=== PATIENT | female | born 1925 | race African-American/Black ===

== ENCOUNTER 2016-10-04 03:32 | Inpatient (IN) | payer MEDICARE, BC ==
[2016-10-04] VITALS (7 sets, daily range): BP systolic 150–191; BP diastolic 65–74
[~2016-10-04] VITALS: Ht 165.1 cm; Wt 65.8 kg
[2016-10-04] MEDS ORDERED: UNOBMED (03:35)
--- NOTE | 2016-10-04 04:07 | Emergency Room Report ---
History of Present Illness General Chief Complaint: Hypertension Source: Patient, EMS Present Illness HPI Is an 89-year-old female with no medical problem. She lives by herself. She does not know why she is here. EMS was called to her place. They were let in by her neighbor. They found her in the bathroom. She said she did not fall. She did not know why 911 was called. Her blood pressure was very high so they brought her here. Patient denies any symptom. She denied any trauma. Denies any focal deficit. Allergies: Coded Allergies: No Known Allergies (Unverified , 10/04/16) Patient History Past Medical History: none Past Surgical History: none Pertinent Family History: none Social History: Denies: smoking Now: No Immunizations: other Reviewed Nursing Documentation: PMH: Agreed, PSxH: Agreed Nursing Documentation-PMH Hx Hypertension: Yes History Of Psychiatric Problem: Yes - DEMENTIA Review of Systems Eye: Denies: blurred vision, eye pain ENT: Denies: ear pain, nose congestion, throat swelling Respiratory: Denies: cough, shortness of breath Cardiovascular: Denies: chest pain, palpitations Gastrointestinal: Denies: abdominal pain, diarrhea, nausea, vomiting Musculoskeletal: Denies: back pain, joint pain Skin: Denies: rash Neurological: Denies: headache, numbness Endocrine: Denies: increased thirst, increased urine Hematologic/Lymphatic: Denies: easy bruising All Other Systems: negative except mentioned in HPI Physical Exam Vital Signs Date Time Temp Pulse Resp B/P Pulse Ox O2 Delivery O2 Flow Rate FiO2 10/04/16 03:35 98.1 83 16 216/85 96 Room Air vitals with hypertension Sp02 EP Interpretation: reviewed, normal General Appearance: well appearing, no apparent distress, alert Head: normocephalic, atraumatic Eyes: bilateral eye EOMI, bilateral eye PERRL ENT: hearing grossly normal, normal pharynx, other - Patient has gauze stuffed up both nostrils.She did this because her nose was running. Neck: full range of motion, supple, no meningismus Respiratory: chest non-tender, lungs clear, normal breath sounds Cardiovascular #1: regular rate, rhythm, no murmur Gastrointestinal: normal bowel sounds, non tender, no mass, no organomegaly, no bruit, non-distended Musculoskeletal: back normal, gait/station normal, normal range of motion Psychiatric: mood/affect normal Skin: warm/dry Medical Decision Making Diagnostic Impression: Primary Impression: Hypertension Qualified Codes: I10 - Essential (primary) hypertension Additional Impressions: UTI (urinary tract infection) Qualified Codes: N30.00 - Acute cystitis without hematuria Dementia Qualified Codes: F03.90 - Unspecified dementia without behavioral disturbance ER Course Patient presents with altered mental status. I suspect that she has worsening dementia secondary to urine tract infection. Initially she is alert oriented x3 but now she doesn't remember brought her here. Did not know that EMS was called. I feel that she is a danger to herself because of her worsening dementia. We'll admit her for further workup. Per EMS, her house is very messy and unkempt. Laboratory Tests Test 10/04/16 03:55 10/04/16 04:12 White Blood Count 5.7 K/UL (4.8-10.8) Red Blood Count 4.38 M/UL (4.20-5.40) Hemoglobin 12.8 G/DL (12.0-16.0) Hematocrit 39.0 % (37.0-47.0) Mean Corpuscular Volume 89 FL (80-99) Mean Corpuscular Hemoglobin 29.3 PG (27.0-31.0) Mean Corpuscular Hemoglobin Concent 32.9 G/DL (32.0-36.0) Red Cell Distribution Width 13.1 % (11.6-14.8) Platelet Count 198 K/UL (150-450) Mean Platelet Volume 8.1 FL (6.5-10.1) Neutrophils (%) (Auto) 55.0 % (45.0-75.0) Lymphocytes (%) (Auto) 33.1 % (20.0-45.0) Monocytes (%) (Auto) 9.2 % (1.0-10.0) Eosinophils (%) (Auto) 1.8 % (0.0-3.0) Basophils (%) (Auto) 1.0 % (0.0-2.0) Sodium Level 141 mEQ/L (135-145) Potassium Level 3.6 mEQ/L (3.4-4.9) Chloride Level 99 mEQ/L (98-107) Carbon Dioxide Level 27 mEQ/L (20-30) Anion Gap 15 (5-15) Blood Urea Nitrogen 18 mg/dL (7-23) Creatinine 1.0 mg/dL (0.5-0.9) H Estimat Glomerular Filtration Rate mL/min (>60) Glucose Level 114 mg/dL (74-106) H Calcium Level 9.4 mg/dL (8.6-10.2) Total Bilirubin 0.3 mg/dL (0.0-1.2) Aspartate Amino Transf (AST/SGOT) 23 U/L (5-40) Alanine Aminotransferase (ALT/SGPT) 18 U/L (3-33) Alkaline Phosphatase 149 U/L (35-104) H Total Protein 7.2 g/dL (6.6-8.7) Albumin 4.1 g/dL (3.5-5.2) Globulin 3.1 g/dL Albumin/Globulin Ratio 1.3 (1.0-2.7) Urine Color Pale yellow Urine Appearance Slightly cloudy Urine pH 7 (4.5-8.0) Urine Specific [place] 1.010 (1.005-1.035) Urine Protein 1+ (NEGATIVE) H Urine Glucose (UA) Negative (NEGATIVE) Urine Ketones Negative (NEGATIVE) Urine Occult Blood 1+ (NEGATIVE) H Urine Nitrite Negative (NEGATIVE) Urine Bilirubin Negative (NEGATIVE) Urine Urobilinogen Normal MG/DL (0.0-1.0) Urine Leukocyte Esterase 3+ (NEGATIVE) H Urine RBC 2-4 /HPF (0 - 2) H Urine WBC 20-30 /HPF (0 - 2) H Urine Squamous Epithelial Cells Few /LPF (NONE/OCC) Urine Bacteria Few /HPF (NONE) Lab Results Impression labs unremarkable EKG Diagnostic Results Rate: normal Rhythm: NSR ST Segments: no acute changes Rhythm Strip Diag. Results EP Interpretation: yes Rate: 75 Rhythm: NSR, no PVC's, no ectopy CT/MRI/US Diagnostic Results CT/MRI/US Diagnostic Results : Imaging Test Ordered: CT head Impression negative per radiologist Last Vital Signs Date Time Temp Pulse Resp B/P Pulse Ox O2 Delivery O2 Flow Rate FiO2 10/04/16 03:46 83 16 Room Air 10/04/16 03:35 98.1 216/85 96 Status: improved Disposition: ADMITTED INPATIENT Condition: Serious FLIP HOUSTON M.D. Oct 04, 2016 04:07
[2016-10-04 04:15] LABS: EOSINOPHILS % (AUTO) 1.8 % (0.0-3.0); LYMPHOCYTES % (AUTO) 33.1 % (20.0-45.0); MEAN CORPUSCULAR HEMOGLOBIN 29.3 PG (27.0-31.0); MEAN CORPUSCULAR HGB CONC 32.9 G/DL (32.0-36.0); MEAN CORPUSCULAR VOLUME 89 FL (80-99); MEAN PLATELET VOLUME 8.1 FL (6.5-10.1); MONOCYTES % (AUTO) 9.2 % (1.0-10.0); PLATELET COUNT 198 K/UL (150-450); RED BLOOD COUNT 4.38 M/UL (4.20-5.40); RED CELL DISTRIBUTION WIDTH 13.1 % (11.6-14.8); WHITE BLOOD COUNT 5.7 K/UL (4.8-10.8)
[2016-10-04 04:28] LABS: KETONES,URINE NEGATIVE (NEGATIVE); LEUKOCYTE ESTERASE ,URINE 3+ (NEGATIVE); NITRITE,URINE NEGATIVE (NEGATIVE); PH,URINE 7 (4.5-8.0); PROTEIN,URINE 1+ (NEGATIVE); UROBILINOGEN,URINE NORMAL MG/DL (0.0-1.0)
[2016-10-04 04:29] LABS: ALANINE AMINOTRANSFERASE 18 U/L (3-33); ALBUMIN/GLOBULIN RATIO 1.3 (1.0-2.7); ANION GAP 15 (5-15); ASPARTATE AMINO TRANSFERASE 23 U/L (5-40); CALCIUM 9.4 mg/dL (8.6-10.2); CARBON DIOXIDE 27 mEQ/L (20-30); CHLORIDE 99 mEQ/L (98-107); HEMOLYSIS 0; POTASSIUM 3.6 mEQ/L (3.4-4.9); SODIUM 141 mEQ/L (135-145); TOTAL PROTEIN 7.2 g/dL (6.6-8.7)
[2016-10-04 04:32] LABS: APPEARANCE,URINE SLIGHTLY CLOUDY
[2016-10-04 04:41] LABS: BACTERIA,URINE FEW /HPF; SQUAMOUS EPITHELIAL CELL,UR FEW /LPF (NONE/OCC); WBC,URINE 20-30 /HPF (0 - 2)
[2016-10-04] MEDS ORDERED: cefTRIAXone 1 GM in NS 55 ML IVPB ONE (05:15)
[2016-10-04] MEDS ORDERED: Milk of Magnesia 30ml Ud ORAL PRN (08:00)
--- NOTE | 2016-10-04 09:28 | Diagnostic Imaging Report ---
Indication: Altered mental status Technique: Continuous helical CT scanning of the head was performed utilizing automated exposure control without intravenous contrast material. Axial and coronal reconstructions were obtained. Comparison: None CT dose: Total DLP 1291 mGycm; CTDI vol 70.4 mGy Findings: There is no acute intracranial hemorrhage, mass effect or cortical edema. The ventricles, cisterns and sulci are prominent consistent with atrophy. Periventricular and subcortical hypoattenuation are seen, a nonspecific finding. 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 The posterior fossa and fourth ventricle are unremarkable. Sellar and suprasellar regions are grossly unremarkable. There is a small retention cyst or polyp of the right maxillary sinus. No focal lesions of the bony calvarium or soft tissues of the scalp are seen. Impression: No evidence of acute intracranial hemorrhage, mass effect or cortical edema. MRI may be obtained for more sensitive evaluation as clinically indicated. Atrophy and prominent nonspecific periventricular and subcortical hypoattenuation suggestive of chronic ischemic microvascular changes. Tiny hypodensity of the right basal ganglia probably an old infarct. The CT scanner at [facility] [place] is accredited by the [employer] and the scans are performed using protocols designed to limit radiation exposure to as low as reasonably achievable to attain images of sufficient resolution adequate for diagnostic evaluation.
--- NOTE | 2016-10-04 11:11 | History & Physical ---
History and Physical History & Physicial HP dictated # [id number] DAVID LIU Oct 04, 2016 11:11
[2016-10-04] MEDS ORDERED: PPD Tuberculin Skin Test 5TU IDERMAL ONE (14:00)
--- NOTE | 2016-10-04 18:38 | History and Physical Report ---
DATE OF ADMISSION: 10/04/2016 CHIEF COMPLAINT: The patient was found to be confused at her residence and had a high blood pressure. HISTORY OF PRESENT ILLNESS: This is an 89-year-old female, who apparently lives alone. The patient was brought in by paramedics. Apparently a neighbor called because the neighbors felt that the patient could not take care of herself. When the paramedics entered the house, she was in the bathroom and she said that she did not fall. The patient was brought into the emergency room and was admitted for UTI and also elevated blood pressure. Initial blood pressure was in the 200 range systolic. The patient is completely confused. She knows her name and she knows the year. She does not know the month. Also she thinks that she is in a race track. She does not know that she is in the hospital. When asked why she came here, she said that she wanted to meet some friends here. PAST MEDICAL HISTORY: The patient does have a history of hypertension, otherwise, we cannot get much history from her. Also it looks like she has also previous history of dementia. SOCIAL HISTORY: Again the patient has no history of smoking or alcohol abuse. She lives alone. ALLERGIES: No known drug allergies. REVIEW OF SYSTEMS: Noncontributory. PHYSICAL EXAMINATION: GENERAL: This is an elderly female, in no acute distress. VITAL SIGNS: Blood pressure 160/74, pulse 86, temperature 98.1, and respiratory rate is 18. HEENT: [place] conjunctivae. Anicteric sclerae. NECK: Supple. LUNGS: Clear to auscultation. HEART: S1 and S2 without murmurs or rubs. ABDOMEN: Soft and nontender. EXTREMITIES: No cyanosis or edema. LABORATORY FINDINGS: The chemistry panel showed serum sodium 141, potassium 3.6, chloride 99, CO2 of 27, BUN is 18, creatinine 1, and blood sugar is 114. AST 23 and ALT 18. CBC shows WBC of 5.7, hematocrit is 39.4, hemoglobin is 12.8, and platelets 198,000. ASSESSMENT: This is an 89-year-old female, who was admitted with urinary tract infection, uncontrolled hypertension, and failure to thrive. She is not able to take care of herself because of her dementia, likely Alzheimer type. PLAN: The patient was started on IV antibiotics. She will be on blood pressure medication, and those medications will be adjusted gradually. [facility] to [facility] the patient in a [facility] facility for the time being and also psychiatry evaluation will be done to see how much capacity the patient has. At this point, she looks like she cannot make any decisions for herself. Deejay Kearney M.D. DR: ORA JOB#: [id number] CC:
[2016-10-05] VITALS: BP 148/67
[2016-10-05 04:00] VITALS: BP 152/65
[2016-10-05] MEDS: cefTRIAXone 1 GM in NS 55 ML IVPB SCH (05:05)
[2016-10-05 07:51] VITALS: BP 135/69
--- NOTE | 2016-10-05 10:41 | Diagnostic Imaging Report ---
Indications: COUGH Technique: Portable AP chest Findings: Comparison: None Inspiratory effort is suboptimal. Linear densities in both lung bases. Visualized portions of lungs and pleura are otherwise clear. Cardiac silhouette partially obscured. Pulmonary vasculature within normal limits. Thoracic aorta mildly calcified and elongated. Bridging osteophytes throughout thoracic spine. IMPRESSION: Pulmonary bibasal subsegmental atelectasis versus scarring Otherwise no evidence of acute cardiopulmonary disease, limited as described Aortosclerosis and probable chronic hypertensive change Degenerative spondylosis
[2016-10-05 11:54] VITALS: BP 154/92
--- NOTE | 2016-10-05 12:40 | General Progress Note ---
Assessment/Plan Problem List: (1) UTI (urinary tract infection) ICD Codes: N39.0 - Urinary tract infection, site not specified SNOMED: 28001219 Qualifiers: Qualified Codes: N30.00 - Acute cystitis without hematuria (2) Hypertension ICD Codes: I10 - Essential (primary) hypertension SNOMED: 23431122 Qualifiers: Qualified Codes: I10 - Essential (primary) hypertension (3) Dementia ICD Codes: F03.90 - Unspecified dementia without behavioral disturbance SNOMED: 63661462 Qualifiers: Qualified Codes: F03.90 - Unspecified dementia without behavioral disturbance Assessment/Plan Abxs watch BP Discussed with nephcindi Mcclelland at length Subjective Allergies: Coded Allergies: No Known Allergies (Unverified , 10/04/16) Subjective feels ok Objective Last 24 Hour Vital Signs Date Time Temp Pulse Resp B/P Pulse Ox O2 Delivery O2 Flow Rate FiO2 10/05/16 11:54 97.7 77 18 154/92 98 Room Air 10/05/16 08:21 77 135/69 10/05/16 07:51 97.5 77 18 135/69 97 Room Air 10/05/16 04:00 97.6 73 19 152/65 99 Room Air 10/05/16 00:00 98.0 75 19 148/67 98 10/04/16 20:00 98.6 83 20 150/71 98 Room Air 10/04/16 16:00 98.6 85 21 152/74 97 Room Air Intake and Output 10/04/16 10/05/16 19:00 07:00 Intake Total 480 ml 315 ml Balance 480 ml 315 ml Intake Oral 480 ml 260 ml IV Total 55 ml Laboratory Tests 10/05/16 07:00: Thyroid Stimulating Hormone (TSH) 2.860 Height (Feet): 5 Height (Inches): 5.00 Weight (Pounds): 145 Cardiovascular: normal rate Respiratory/Chest: lungs clear Edema: no edema noted DAVID Gaytan Oct 05, 2016 12:40
[2016-10-05 16:00] VITALS: BP 174/76
[2016-10-05 20:00] VITALS: BP 146/84
--- NOTE | 2016-10-06 01:38 | Consultation ---
DATE OF CONSULTATION: HISTORY OF PRESENT ILLNESS: The patient is an 89-year-old female with a history of hypertension. The patient has been admitted to the hospital brought in by paramedics, neighbor called as the patient was unable to care for herself. During the evaluation, the patient is presenting with impairment of concentration, memory, and attention. She appears to be confused. She was asking home and was pointing out to the nursing station. During the evaluation, she was unable to provide much history as she was confused and was unable to be engaged. She was anxious and irritable. PAST PSYCHIATRIC HISTORY: None known. PAST MEDICAL HISTORY: Significant for urinary tract infection, hypertension, and dementia with behavioral issues. ALLERGIES: There is no known drug allergies. SUBSTANCE ABUSE HISTORY: No history of illicit drug use or alcohol. Nonsmoker. MENTAL STATUS EXAMINATION: The patient is alert, oriented times self and place. She was uncooperative with the examination. She was unable to provide any history. Her mood is irritable. Affect is congruent with mood. Thought process was concrete. Thought content, there is no suicidal or homicidal ideation. However, she was delusional. Cognition was impaired. Insight and judgment is impaired. ASSESSMENT: [place] I: Dementia with behavioral disturbance. AXIS II: Deferred. AXIS III: As above. AXIS IV: Mild. AXIS V: 20. PLAN: The patient lacks capacity to leave against medical advice. She also lacks capacity to make decisions in regards to living on her own. The patient is unable to care for self and she needs to be discharged to a long-term. The patient was unable to understand, process, communicate, nor appreciate the information was given to her in regards to her mental condition. Therefore, she lacks capacity to make decisions about her disposition. Arley Fuchs M.D. DR: Shayan JOB#: [id number] CC:
[2016-10-06 04:00] VITALS: BP 130/74
[2016-10-06] MEDS: cefTRIAXone 1 GM in NS 55 ML IVPB SCH (04:25)
[2016-10-06 08:00] VITALS: BP 123/69
[2016-10-06 12:00] VITALS: BP 127/61
[2016-10-06] MEDS ORDERED: LORazepam 1mg tab ORAL PRN (12:45)
[2016-10-06 16:00] VITALS: BP 147/70
--- NOTE | 2016-10-06 16:09 | General Progress Note ---
Assessment/Plan Problem List: (1) UTI (urinary tract infection) ICD Codes: N39.0 - Urinary tract infection, site not specified SNOMED: 89483725 Qualifiers: Qualified Codes: N30.00 - Acute cystitis without hematuria (2) Hypertension ICD Codes: I10 - Essential (primary) hypertension SNOMED: 83086998 Qualifiers: Qualified Codes: I10 - Essential (primary) hypertension (3) Dementia ICD Codes: F03.90 - Unspecified dementia without behavioral disturbance SNOMED: 73196075 Qualifiers: Qualified Codes: F03.90 - Unspecified dementia without behavioral disturbance Assessment/Plan Abxs watch BP Discussed with RN Subjective Allergies: Coded Allergies: No Known Allergies (Unverified , 10/04/16) Subjective was wandering around today Objective Last 24 Hour Vital Signs Date Time Temp Pulse Resp B/P Pulse Ox O2 Delivery O2 Flow Rate FiO2 10/06/16 16:00 97.6 82 20 147/70 92 Room Air 10/06/16 12:00 96.9 83 19 127/61 97 Room Air 10/06/16 08:44 82 130/74 10/06/16 08:00 97.6 79 18 123/69 Room Air 10/06/16 04:00 97.8 82 18 130/74 97 Room Air 10/05/16 20:00 98.2 86 18 146/84 97 Room Air 10/05/16 17:07 174/76 Intake and Output 10/05/16 10/06/16 19:00 07:00 Intake Total 600 ml 55 ml Balance 600 ml 55 ml Intake Oral 600 ml IV Total 55 ml # Voids 4 2 Height (Feet): 5 Height (Inches): 5.00 Weight (Pounds): 145 Cardiovascular: normal rate Respiratory/Chest: lungs clear Edema: no edema noted DAVID Gaytan Oct 06, 2016 16:09
[2016-10-06 20:00] VITALS: BP 128/61
[2016-10-07] VITALS: BP 122/64
--- NOTE | 2016-10-07 00:48 | Progress Note ---
DATE: 10/06/2016 SUBJECTIVE: Earlier today, the patient became agitated and anxious. She threatened to leave the hospital. She is presenting with disorganized speech and behavior, and told me that "it is getting late. I need to get ready to go home." She lacks capacity in regards to making decision in regards to her medical condition as well as placement. She is unable to understand process, communicate, nor appreciate. The information was given to her. MENTAL STATUS EXAMINATION: Alert and oriented to time and self. Speech is within normal limits. Her volume frequency and latency. Mood, during the evaluation, is neutral, however, she became agitated earlier. Affect is full-range and congruent with mood and it appropriate. Thought process is concrete. Thought content, no suicidal or homicidal ideation. Positive for delusions. Insight and judgment are impaired. Cognition is severely impaired. ASSESSMENT: Dementia with behavior issues. PLAN: 1. Continue the patient on Zyprexa 5 mg p.o. nightly. 2. Continue Ativan p.r.n. for anxiety and agitation. Arley Fuchs M.D. DR: FAREED JOB#: [id number] CC:
[2016-10-07 04:00] VITALS: BP 126/74
[2016-10-07] MEDS: cefTRIAXone 1 GM in NS 55 ML IVPB SCH (05:52)
[2016-10-07 08:00] VITALS: BP 137/72
[2016-10-07 12:00] VITALS: BP 145/64
--- NOTE | 2016-10-07 14:47 | General Progress Note ---
Assessment/Plan Problem List: (1) UTI (urinary tract infection) ICD Codes: N39.0 - Urinary tract infection, site not specified SNOMED: 05055791 Qualifiers: Qualified Codes: N30.00 - Acute cystitis without hematuria (2) Hypertension ICD Codes: I10 - Essential (primary) hypertension SNOMED: 56148103 Qualifiers: Qualified Codes: I10 - Essential (primary) hypertension (3) Dementia ICD Codes: F03.90 - Unspecified dementia without behavioral disturbance SNOMED: 58569394 Qualifiers: Qualified Codes: F03.90 - Unspecified dementia without behavioral disturbance Assessment/Plan Abxs watch BP Discussed with RN Discussed with case resource manager Await placement Subjective Allergies: Coded Allergies: No Known Allergies (Unverified , 10/04/16) Subjective confused Objective Last 24 Hour Vital Signs Date Time Temp Pulse Resp B/P Pulse Ox O2 Delivery O2 Flow Rate FiO2 10/07/16 12:00 98.4 74 16 145/64 96 Room Air 10/07/16 09:31 72 137/82 10/07/16 08:00 98.1 74 22 137/72 97 Room Air 10/07/16 04:00 97.4 72 14 126/74 99 Room Air 10/07/16 00:00 97.6 76 16 122/64 Room Air 10/06/16 20:00 97.5 75 14 128/61 100 10/06/16 16:00 97.6 82 20 147/70 92 Room Air Intake and Output 10/06/16 10/07/16 19:00 07:00 # Voids 2 Height (Feet): 5 Height (Inches): 5.00 Weight (Pounds): 145 Cardiovascular: normal rate Respiratory/Chest: lungs clear DAVID LIU Oct 07, 2016 14:47
[2016-10-07] MEDS ORDERED: OLANZAPINE5 MG ORAL (15:29)
[2016-10-07] MEDS ORDERED: NORVASC10 MG ORAL (15:29)
--- NOTE | 2016-10-07 15:36 | Consultation ---
Consult Note Assessment/Plan Dc dictated # [id number] DAVID LUI Oct 07, 2016 15:36
[2016-10-07] MEDS ORDERED: Tubing IV Secondary IV ONE (16:10)
--- NOTE | 2016-10-07 16:18 | Cardiology Report ---
APPROVED REPORT EKG Measurement Heart [id number] [place] [id number] Normal sinus rhythm Possible Anterior infarct, age undetermined Abnormal ECG
--- NOTE | 2016-10-07 20:27 | Progress Note ---
DATE: 10/07/2016 PSYCHIATRIC PROGRESS NOTE: SUBJECTIVE AND OBJECTIVE: The patient is presenting with impairment of cognition. She is confused and insists that she wants to be discharged and go home. She does not know where she is. She is only alert and oriented to self. She lacks capacity to make any decision as she does not understand. She is unable to understand process, communicate, or appreciate information given to her in regards to her medical condition. ASSESSMENT: 1. Dementia. 2. Psychotic disorder. PLAN: 1. The patient will be continued on current medications. 2. The patient lacks capacity to leave against medical advice and is unable to make a decision about placement. Arley Fuchs M.D. DR: Carmelo JOB#: [id number] CC:
--- NOTE | 2016-10-08 00:48 | Discharge Summary ---
DATE OF ADMISSION: 10/04/2016 DATE OF DISCHARGE: 10/07/2016 CHIEF COMPLAINT: The patient was found to be confused at her residence and high blood pressures. HISTORY OF PRESENT ILLNESS: This is an 89-year-old female, who was brought in by paramedics after neighbor called since the patient was confused. The patient was found to have urinary tract infection in the emergency room and also high blood pressure more than 200 systolic. HOSPITAL COURSE: The patient was started on amlodipine 10 mg daily. She was started on IV antibiotics. She was diagnosed with underlying dementia. The patient was seen by Dr. Arley Fuchs in psychiatry consultation. Assessment was dementia with behavioral disturbance and that the patient had a lack of capacity to leave against medical advice. She lacked capacity to make decisions regarding to living on her own. The patient was unable to care of herself and needed to be discharged to a halfway. However, the patient has a nephew, who is a power of family law attorney. He came and insisted to take the patient home under his care until he finds a halfway for the patient. As such, the patient was discharged home under the care of the nephew. DISCHARGE DIAGNOSES: 1. Dementia with behavioral disturbances and confusion. 2. Urinary tract infection. 3. Uncontrolled hypertension. DISCHARGE MEDICATIONS: Please refer to discharge medication list. Deejay Kearney M.D. DR: NABEEL JOB#: [id number] CC:
== END 2016-10-07 16:11 | disposition home or self-care (01) | DRG 463 ==
LOC: EDBD 03:32 → EMR 03:45 → 3E 06:15 → EDBEDREQ 06:41 → 4W 17:06
DX: N39.0 Urinary tract infection, site not specified (principal); F03.91 Unspecified dementia, unspecified severity, with behavioral disturbance; I10 Essential (primary) hypertension; Z60.2 Problems related to living alone
CPT/HCPCS: 36415; 70450; 71010; 80053; 81001; 84443; 85025; 86580; 87086; 93005